=== PATIENT | male | born 1960 | race Hispanic/Latino ===

== ENCOUNTER 2021-03-18 00:07 | Observation (INO) | payer BC ==
[2021-03-18 01:45] LABS: Basophils % (Auto) 0.2 % (0.0-1.8); Hematocrit 49.6 % (35.5-45.6); Hemoglobin 17.4 gm/dl (11.8-15.2); Lymphocytes # (Auto) 2.5 K/mm3 (1.2-5.4); Lymphocytes % (Auto) 22.7 % (13.4-35.0); Mean Corpuscular HGB Conc 35 % (32-34); Mean Corpuscular Volume 99 fl (84-94); Monocytes % (Auto) 8.6 % (0.0-7.3); Platelet Count 304 K/mm3 (140-440); Red Blood Count 5.02 M/mm3 (3.65-5.03); Red Cell Distribution Width 12.8 % (13.2-15.2)
[2021-03-18 02:11] LABS: Alanine Aminotransferase 8 units/L (7-56); Albumin 4.8 g/dL (3.9-5); BUN/Creatinine Ratio 25; Blood Urea Nitrogen 20 mg/dL (9-20); Calcium 10.1 mg/dL (8.4-10.2); Hemolysis Index 17
--- NOTE | 2021-03-18 02:38 | XRay Report ---
ABDOMEN 2 VIEW(S) INDICATION / CLINICAL INFORMATION: Nausea, Vomiting and Diarrhea. COMPARISON: None available. FINDINGS: TUBES / LINES: None. BOWEL GAS PATTERN: Abnormal dilated air-filled small bowel mid upper abdomen. There is air distally i n the colon. FREE AIR / EXTRALUMINAL GAS: None seen. ADDITIONAL FINDINGS: No significant additional findings. IMPRESSION: 1. Abnormal appearance of the small bowel in the upper mid abdomen concerning for at least partial ob struction or focal ileus. Recommend follow-up CT with IV contrast for further evaluation. Signer Name: Daryl Hamlin MD Signed: 03/18/2021 2:34 AM Workstation Name: [id number]
[2021-03-18] MEDS ORDERED: SODIUM CHLORIDE 0.9% 1000 ML 1,000 ML IV ONE (03:57)
--- NOTE | 2021-03-18 04:04 | Emergency Department Report ---
ED Abdominal Pain HPI - General Chief Complaint: Nausea/Vomiting/Diarrhea Stated Complaint: FEVER/EMESIS/DIARRHEA PUI?: No Time Seen by Provider: 03/18/21 03:55 Source: patient Mode of arrival: Ambulatory Limitations: No Limitations - History of Present Illness Initial Comments: Patient is a 61-year-old male that presents emergency room with complaints of abdominal pain, nausea, vomiting, diarrhea. Patient states that his symptoms started 4 days ago. Patient states his symptoms are worsening. Patient states he is feeling weak. Patient denies chest pain. Patient denies shortness of breath. Patient states he feels feverish. Patient complains of chills. Patient states that his abdominal pain is periumbilical. Patient states he has had a 10. Patient is a stabbing pain. Patient dates he has history of diverticulitis. Patient states his pain is better with rest and worse with movement and vomiting. Patient states he has held anything down for 4 days. Patient denies blood in his stool. Patient denies blood in his vomitus. Patient denies recent travel. Patient denies recent international travel. Patient denies exposure to the novel coronavirus. Patient denies sick contacts. Patient denies cough. Patient denies coming in contact with anybody with symptoms of the novel coronavirus. MD Complaint: abdominal pain -: Sudden Location: periumbilical Radiation: none Migration to: no migration Severity: severe Severity scale (0 -10): 10 Quality: stabbing Consistency: constant Improves With: rest Worsens With: eating, vomiting, movement Associated Symptoms: nausea, vomiting, diarrhea, fever, chills. denies: dysuria, hematemesis, hematochezia, melena, hematuria, anorexia, syncope - Related Data Allergies Allergy/AdvReac Type Severity Reaction Status Date / Time No Known Allergies Allergy Unverified 03/18/21 00:58 ED Review of Systems ROS: Stated complaint: FEVER/EMESIS/DIARRHEA Other details as noted in HPI Constitutional: malaise, weakness. denies: chills, fever Eyes: denies: eye pain, eye discharge, vision change ENT: denies: ear pain, throat pain Respiratory: denies: cough, shortness of breath, wheezing Cardiovascular: denies: chest pain, palpitations Endocrine: no symptoms reported Gastrointestinal: as per HPI, abdominal pain, nausea, vomiting, diarrhea Genitourinary: denies: urgency, dysuria Musculoskeletal: denies: back pain, joint swelling, arthralgia Skin: denies: rash, lesions Neurological: denies: headache, paresthesias Psychiatric: denies: anxiety, depression Hematological/Lymphatic: denies: easy bleeding, easy bruising ED Past Medical Hx - Past Medical History Previous Medical History?: Yes Additional medical history: Chronic Back Pain. Opioid Addiction - Surgical History Past Surgical History?: No - Family History Family history: no significant - Social History Smoking Status: Current Every Day Smoker Substance Use Type: None ED Physical Exam - General Limitations: No Limitations General appearance: alert, in no apparent distress - Head Head exam: Present: atraumatic, normocephalic - Eye Eye exam: Present: normal appearance - ENT ENT exam: Present: mucous membranes dry - Neck Neck exam: Present: normal inspection - Respiratory Respiratory exam: Present: normal lung sounds bilaterally. Absent: respiratory distress - Cardiovascular Cardiovascular Exam: Present: regular rate, normal rhythm. Absent: systolic murmur, diastolic murmur, rubs, gallop - GI/Abdominal GI/Abdominal exam: Present: soft, tenderness, normal bowel sounds - Rectal Rectal exam: Present: deferred - Extremities Exam Extremities exam: Present: normal inspection - Back Exam Back exam: Present: normal inspection - Neurological Exam Neurological exam: Present: alert, oriented X3 - Psychiatric Psychiatric exam: Present: normal affect, normal mood - Skin Skin exam: Present: warm, dry, intact, normal color. Absent: rash ED Course Vital Signs 03/18/21 03/18/21 03/18/21 00:29 04:03 04:09 Temperature 98.2 F Pulse Rate 93 H 79 Respiratory 18 14 18 Rate Blood Pressure 118/84 O2 Sat by Pulse 98 98 Oximetry 03/18/21 03/18/21 03/18/21 04:15 04:31 04:45 Temperature Pulse Rate 73 74 Respiratory 10 L 16 18 Rate Blood Pressure 148/82 150/89 148/78 O2 Sat by Pulse 98 100 99 Oximetry 03/18/21 03/18/21 05:09 05:15 Temperature Pulse Rate 77 79 Respiratory 17 12 Rate Blood Pressure O2 Sat by Pulse 88 100 Oximetry - Reevaluation(s) Reevaluation #1: I discussed all results with patient. I discussed plan of care with patient. Patient agrees with plan of care and admission. Patient to be admitted to the hospitalist service. 03/18/21 06:10 - Consultations Consultation #1: Hospitalist consulted for admission. Hospitalist to admit patient. 03/18/21 06:10 ED Medical Decision Making - Lab Data Result diagrams: 03/18/21 01:30 03/18/21 01:30 - Radiology Data Radiology results: report reviewed, image reviewed CT ABDOMEN AND PELVIS WITH CONTRAST HISTORY: Periumbilical abd pain with N/V/D x 4 days. S.B.O. seen on X-ray. COMPARISON: None. TECHNIQUE: CT images of the abdomen and pelvis were obtained following administration of intravenous contrast. All CT scans at this location are performed using CT dose reduction for ALARA by means of automated exposure control. CONTRAST: 100 ml of intravenous contrast administered. FINDINGS: Lungs/bones: Severe emphysema with otherwise clear lung bases. Mild degenerative changes in the spine and pelvis with nothing acute. Abdomen/pelvis: There is diffuse small bowel mucosal enhancement and fluid- filled appearance with a few mildly prominent loops in the right mid abdomen likely accounting for the x-ray findings. No transition point identified. The liver, gallbladder, spleen, pancreas, adrenals, and kidneys appear unremarkable. The urinary bladder and prostate are unremarkable with no pelvic free fluid. There is mild colonic diverticulosis with no acute inflammatory change. The appendix is normal. IMPRESSION: 1. Diffuse small bowel findings most likely represent moderate enteritis. No obstruction identified. ABDOMEN 2 VIEW(S) INDICATION / CLINICAL INFORMATION: Nausea, Vomiting and Diarrhea. COMPARISON: None available. FINDINGS: TUBES / LINES: None. BOWEL GAS PATTERN: Abnormal dilated air-filled small bowel mid upper abdomen. There is air distally in the colon. FREE AIR / EXTRALUMINAL GAS: None seen. ADDITIONAL FINDINGS: No significant additional findings. IMPRESSION: 1. Abnormal appearance of the small bowel in the upper mid abdomen concerning for at least partial obstruction or focal ileus. Recommend follow-up CT with IV contrast for further evaluation. - Medical Decision Making Patient is a 61-year-old male who presents emergency room with complaints of nausea, vomiting, diarrhea, abdominal pain. Patient also complains of weakness. Patient's nausea vomiting is intractable. Patient weakness made it difficult to walk. Patient also complained of lightheadedness. Patient had labs done which were consistent with dehydration and hemoconcentration. Patient found to have an elevated WBC. Patient had a flat plate abdominal series and it showed possible SBO. Suggest to have a CT scan of the abdomen. CT scan of the abdomen with IV contrast shows enteritis. Patient denies is intractable. Patient's pain is difficult to control. Patient given 2 mg of Dilaudid and still complained of pain. Patient admitted to the hospital for further evaluation treatment intractable nausea and vomiting and intractable abdominal pain. Pat ient given Zosyn for broad-spectrum antibiotics for the enteritis and intra- abdominal infection. Patient also given fluids in the ER. \ Critical care time documented due to the multiple reassessments, prolonged time at the bedside, interpretation of diagnostics and labs. - Differential Diagnosis sbo, gastroenteritis, enteritis, intractable n/v, weakness, abd pain Critical Care Time: Yes Critical care time in (mins) excluding proc time.: 35 Critical care attestation.: If time is entered above; I have spent that time in minutes in the direct care of this critically ill patient, excluding procedure time. Critical Care Time: 35 minutes ED Disposition Clinical Impression: Gastroenteritis Nausea & vomiting Qualifiers: Vomiting type: unspecified Vomiting Intractability: intractable Qualified Code(s): R11.2 - Nausea with vomiting, unspecified Abdominal pain Qualifiers: Abdominal location: periumbilical Qualified Code(s): R10.33 - Periumbilical pain Diarrhea Qualifiers: Diarrhea type: unspecified type Qualified Code(s): R19.7 - Diarrhea, unspecified Disposition: 09 OP ADMIT IP TO THIS HOSP Is pt being admited?: Yes Does the pt Need Aspirin: No Condition: Critical Time of Disposition: 06:09
[2021-03-18] MEDS ORDERED: HYDROmorphone 2 MG/1 ML INJ IV ONE (05:17)
[2021-03-18] MEDS ORDERED: ONDANSETRON 4 MG/2 ML INJ IV ONE (05:17)
--- NOTE | 2021-03-18 05:51 | Cat Scan Report ---
CT ABDOMEN AND PELVIS WITH CONTRAST HISTORY: Periumbilical abd pain with N/V/D x 4 days. S.B.O. seen on X-ray. COMPARISON: None. TECHNIQUE: CT images of the abdomen and pelvis were obtained following administration of intravenous contrast. All CT scans at this location are performed using CT dose reduction for ALARA by means of automated exposure control. CONTRAST: 100 ml of intravenous contrast administered. FINDINGS: Lungs/bones: Severe emphysema with otherwise clear lung bases. Mild degenerative changes in the spin e and pelvis with nothing acute. Abdomen/pelvis: There is diffuse small bowel mucosal enhancement and fluid-filled appearance with a few mildly prominent loops in the right mid abdomen likely accounting for the x-ray findings. No moe sition point identified. The liver, gallbladder, spleen, pancreas, adrenals, and kidneys appear unremarkable. The urinary bladder and prostate are unremarkable with no pelvic free fluid. There is mild colonic di verticulosis with no acute inflammatory change. The appendix is normal. IMPRESSION: 1. Diffuse small bowel findings most likely represent moderate enteritis. No obstruction identified. Signer Name: Daryl Hamlin MD Signed: 03/18/2021 5:46 AM Workstation Name: [id number]
[2021-03-18] MEDS ORDERED: PIPERACILLIN/TAZOBACTAM 3.375 3.375 GM/50 ML BAG IV ONE (06:04)
[2021-03-18] MEDS ORDERED: ALBUTEROL 2.5 MG/3 ML NEBU IH PRN (06:15)
[2021-03-18] MEDS ORDERED: ACETAMINOPHEN 325 MG TAB PO PRN (06:15)
[2021-03-18] MEDS ORDERED: MORPHINE 2 MG/1 ML INJ IV PRN (06:16)
[2021-03-18] MEDS ORDERED: hydrALAZINE 20 MG/1 ML INJ IV PRN (06:16)
--- NOTE | 2021-03-18 06:22 | History and Physical Report ---
History of Present Illness Date of examination: 03/18/21 Date of admission: 03/18/2021 Chief complaint: Nausea vomiting diarrhea History of present illness: 61-year-old male with past medical history of diverticulitis was brought to the emergency room because of abdominal pain, nausea, vomiting, diarrhea for the last 4 days. Abdominal pain is stabbing in nature periumbilical 10/10. Patient states his symptoms are worsening. Patient states he is feeling weak. Patient denies chest pain and shortness of breath. Patient states he feels feverish. Patient complains of chills. Patient states his pain is better with rest and worse with movement and vomiting. Patient states he has held anything down for 4 days. Patient denies blood in his stool. Patient denies blood in his vomitus. In the emergency room CT scan of the abdomen pelvis shows diffuse small bowel finding most likely represent moderate enteritis no obstruction identified Past History Past Medical History: other (Diverticulitis) Medications and Allergies Allergies Allergy/AdvReac Type Severity Reaction Status Date / Time No Known Allergies Allergy Unverified 03/18/21 00:58 Active Meds: Active Medications Piperacillin Sod/Tazobactam Sod (Zosyn/Ns 3.375gm/50ml) 3.375 gm in 50 mls @ 100 mls/hr IV ONCE ONE; Protocol Stop: 03/18/21 06:33 Review of Systems Gastrointestinal: nausea, vomiting, diarrhea Exam - Constitutional Vitals: Temp Pulse Resp BP Pulse Ox 98.2 F 79 12 148/78 100 03/18/21 00:29 03/18/21 05:15 03/18/21 05:15 03/18/21 04:45 03/18/21 05:15 General appearance: Present: no acute distress, well-nourished - EENT Eyes: Present: PERRL ENT: hearing intact, clear oral mucosa - Neck Neck: Present: supple, normal ROM - Respiratory Respiratory effort: normal Respiratory: bilateral: CTA - Cardiovascular Heart Sounds: Present: S1 & S2. Absent: rub, click - Extremities Extremities: pulses symmetrical, No edema Peripheral Pulses: within normal limits - Abdominal General gastrointestinal: Present: soft, non-tender, non-distended, normal bowel sounds Male genitourinary: Present: normal - Integumentary Integumentary: Present: clear, warm, dry - Musculoskeletal Musculoskeletal: gait normal, strength equal bilaterally - Psychiatric Psychiatric: appropriate mood/affect, intact judgment & insight - Neurologic Neurologic: CNII-XII intact, moves all extremities Results - Labs CBC & Chem 7: 03/18/21 01:30 03/18/21 01:30 Labs: Laboratory Last Values WBC 11.1 K/mm3 (4.5-11.0) H 03/18/21 01:30 RBC 5.02 M/mm3 (3.65-5.03) 03/18/21 01:30 Hgb 17.4 gm/dl (11.8-15.2) H 03/18/21 01:30 Hct 49.6 % (35.5-45.6) H 03/18/21 01:30 MCV 99 fl (84-94) H 03/18/21 01:30 MCH 35 pg (28-32) H 03/18/21 01:30 MCHC 35 % (32-34) H 03/18/21 01:30 RDW 12.8 % (13.2-15.2) L 03/18/21 01:30 Plt Count 304 K/mm3 (140-440) 03/18/21 01:30 Lymph % (Auto) 22.7 % (13.4-35.0) 03/18/21 01:30 [place] % (Auto) 8.6 % (0.0-7.3) H 03/18/21 01:30 Eos % (Auto) 0.0 % (0.0-4.3) 03/18/21 01:30 Baso % (Auto) 0.2 % (0.0-1.8) 03/18/21 01:30 Lymph # (Auto) 2.5 K/mm3 (1.2-5.4) 03/18/21 01:30 [place] # (Auto) 1.0 K/mm3 (0.0-0.8) H 03/18/21 01:30 Eos # (Auto) 0.0 K/mm3 (0.0-0.4) 03/18/21 01:30 Baso # (Auto) 0.0 K/mm3 (0.0-0.1) 03/18/21 01:30 Seg Neutrophils % 68.5 % (40.0-70.0) 03/18/21 01:30 Seg Neutrophils # 7.6 K/mm3 (1.8-7.7) 03/18/21 01:30 Sodium 141 mmol/L (137-145) 03/18/21 01:30 Potassium 3.5 mmol/L (3.6-5.0) L 03/18/21 01:30 Chloride 98.8 mmol/L (98-107) 03/18/21 01:30 Carbon Dioxide 29 mmol/L (22-30) 03/18/21 01:30 Anion Gap 17 mmol/L 03/18/21 01:30 BUN 20 mg/dL (9-20) 03/18/21 01:30 Creatinine 0.8 mg/dL (0.8-1.3) 03/18/21 01:30 Estimated GFR > 60 ml/min 03/18/21 01:30 BUN/Creatinine Ratio 25 % 03/18/21 01:30 Glucose 127 mg/dL (75-100) H 03/18/21 01:30 Calcium 10.1 mg/dL (8.4-10.2) 03/18/21 01:30 Total Bilirubin 0.70 mg/dL (0.1-1.2) 03/18/21 01:30 AST 15 units/L (5-40) 03/18/21 01:30 ALT 8 units/L (7-56) 03/18/21 01:30 Alkaline Phosphatase 109 units/L (35-129) 03/18/21 01:30 Total Protein 7.7 g/dL (6.3-8.2) 03/18/21 01:30 Albumin 4.8 g/dL (3.9-5) 03/18/21 01:30 Albumin/Globulin Ratio 1.7 % 03/18/21 01:30 Lipase 38 units/L (13-60) 03/18/21 01:30 - Imaging and Cardiology CT scan - abdomen: image reviewed Assessment and Plan VTE prophylaxis?: Chemical Plan of care discussed with patient/family: Yes - Patient Problems (1) Gastroenteritis Current Visit: Yes Status: Acute Plan to address problem: Admit the patient to the medical telemetry. N.p.o. IV fluid D5 half-normal saline at the rate of 125 cc/h. Zosyn 4.5 g IV every 8 hours. We sent the stool for culture. Recheck CBC BMP in the morning (2) Diarrhea Current Visit: Yes Status: Acute Qualifiers: Diarrhea type: unspecified type Qualified Code(s): R19.7 - Diarrhea, unspecified Plan to address problem: N.p.o. IV fluid D5 half-normal saline at the rate of 125 cc/h. Zosyn 4.5 g IV every 8 hours. We sent the stool for culture. Recheck CBC BMP in the morning (3) Abdominal pain Current Visit: Yes Status: Acute Qualifiers: Abdominal location: periumbilical Qualified Code(s): R10.33 - Periumbilical pain Plan to address problem: Pepcid 20 mg IV twice daily. Tylenol 650 mg p.o. every 6 hours as needed. Morphine 2 mg IV every 4 hours as needed (4) Nausea & vomiting Current Visit: Yes Status: Acute Qualifiers: Vomiting type: unspecified Vomiting Intractability: intractable Qualified Code(s): R11.2 - Nausea with vomiting, unspecified Plan to address problem: Zofran 4 mg IV every 6 hours as needed. Pepcid 20 mg IV every 12 hours (5) DVT prophylaxis Current Visit: Yes Status: Acute Plan to address problem: Heparin 5000 units subcu every 8 hours for DVT prophylaxis and Pepcid 20 mg IV every 12 hours for GI prophylaxis. Patient is a full code
[2021-03-18] MEDS: IPRATROPIUM/ALBUTEROL SULFATE 3 ML AMPUL.NEB IH SCH ×3 (09:29→21:33)
[2021-03-18] MEDS: MORPHINE 2 MG/1 ML INJ IV PRN ×4 (09:49→22:40)
[2021-03-18] MEDS: PIPERACIL/TAZOBACTA 4.5/NS 100 4.5 GM/100 ML VIAL IV SCH ×2 (13:51→22:18)
[2021-03-18] MEDS: D5W/0.45% NACL 1,000 ML IV SCH (13:52)
[2021-03-18] MEDS: ONDANSETRON 4 MG/2 ML INJ IV PRN ×2 (13:53→22:39)
[2021-03-18] MEDS: HEPARIN 5,000 UNIT/1 ML VIAL SUB-Q SCH ×2 (13:54→22:24)
[2021-03-18] MEDS: FAMOTIDINE 20 MG/2 ML INJ IV SCH ×2 (13:55→22:19)
[2021-03-18] MEDS ORDERED: FLU VACC QUAD 2020-2021 (6 months +)/PF 60 0.5 ML SYRINGE IM ONE (21:00)
[2021-03-18 22:48] LABS: Bilirubin,Urine NEG (Negative); Blood,Urine SM (Negative); Color,Urine Yellow (Yellow); Mucus,Urine 3+ /HPF; Urobilinogen,Urine < 2.0 mg/dL (<2.0)
[2021-03-19] MEDS ORDERED: ZOLPIDEM 5 MG TAB PO ONE (01:55)
[2021-03-19] MEDS: MORPHINE 2 MG/1 ML INJ IV PRN ×4 (05:04→22:24)
[2021-03-19] MEDS: HEPARIN 5,000 UNIT/1 ML VIAL SUB-Q SCH ×4 (05:05→22:25)
[2021-03-19] MEDS: D5W/0.45% NACL 1,000 ML IV SCH (05:05)
[2021-03-19] MEDS: PIPERACIL/TAZOBACTA 4.5/NS 100 4.5 GM/100 ML VIAL IV SCH (05:07)
[2021-03-19] MEDS: IPRATROPIUM/ALBUTEROL SULFATE 3 ML AMPUL.NEB IH SCH ×3 (08:21→22:55)
--- NOTE | 2021-03-19 08:38 | Progress Note ---
Assessment and Plan Assessment and plan: (1) Gastroenteritis Current Visit: Yes Status: Acute Plan to address problem: Admit the patient to the medical telemetry. N.p.o. IV fluid D5 half-normal saline at the rate of 125 cc/h. Zosyn 4.5 g IV every 8 hours. We sent the stool for culture. Recheck CBC BMP in the morning (2) Diarrhea Current Visit: Yes Status: Acute Qualifiers: Diarrhea type: unspecified type Qualified Code(s): R19.7 - Diarrhea, unspecified Plan to address problem: N.p.o. IV fluid D5 half-normal saline at the rate of 125 cc/h. Zosyn 4.5 g IV every 8 hours. We sent the stool for culture. Recheck CBC BMP in the morning (3) Abdominal pain Current Visit: Yes Status: Acute Qualifiers: Abdominal location: periumbilical Qualified Code(s): R10.33 - Periumbilical pain Plan to address problem: Pepcid 20 mg IV twice daily. Tylenol 650 mg p.o. every 6 hours as needed. Morphine 2 mg IV every 4 hours as needed (4) Nausea & vomiting Current Visit: Yes Status: Acute Qualifiers: Vomiting type: unspecified Vomiting Intractability: intractable Qualified Code(s): R11.2 - Nausea with vomiting, unspecified Plan to address problem: Zofran 4 mg IV every 6 hours as needed. Pepcid 20 mg IV every 12 hours (5) DVT prophylaxis Current Visit: Yes Status: Acute Plan to address problem: Heparin 5000 units subcu every 8 hours for DVT prophylaxis and Pepcid 20 mg IV every 12 hours for GI prophylaxis. Patient is a full code 03/19/2021 -Patient's abdominal pain is getting better, continue with antibiotic. Continue pain control. -Patient tolerated clear liquid diet and will advance to full liquid diet for lunch and advance to soft diet for dinner -If patient continuing to improve possible discharge tomorrow. -WBC count is normal today. History Interval history: Patient was seen and evaluated this morning Patient's abdominal pain was 6 out of 10, better than yesterday Patient is on clear liquid diet; will advance as tolerated Hospitalist Physical - Physical exam Narrative exam: Not in cardiopulmonary distress. The patient appeared well nourished and normally developed. Vital signs as documented. Head exam is unremarkable. No scleral icterus . Neck is without jugular venous distension, thyromegaly, or carotid bruits. Lungs are clear to auscultation. Cardiac exam reveals regular rate and Rhythm. Abdominal exam reveals tenderness. Extremities are nonedematous and both femoral and pedal pulses are normal. [employer]: Alert and oriented 3. No focal weakness. - Constitutional Vitals: Temp Pulse Resp BP Pulse Ox 98.9 F 66 18 151/80 97 03/19/21 06:17 03/19/21 06:17 03/19/21 06:17 03/19/21 06:17 03/19/21 06:17 General appearance: Present: no acute distress, well-nourished Results - Labs CBC & Chem 7: 03/19/21 09:00 03/19/21 09:00 Labs: Laboratory Last Values WBC 11.1 K/mm3 (4.5-11.0) H 03/18/21 01:30 RBC 5.02 M/mm3 (3.65-5.03) 03/18/21 01:30 Hgb 17.4 gm/dl (11.8-15.2) H 03/18/21 01:30 Hct 49.6 % (35.5-45.6) H 03/18/21 01:30 MCV 99 fl (84-94) H 03/18/21 01:30 MCH 35 pg (28-32) H 03/18/21 01:30 MCHC 35 % (32-34) H 03/18/21 01:30 RDW 12.8 % (13.2-15.2) L 03/18/21 01:30 Plt Count 304 K/mm3 (140-440) 03/18/21 01:30 Lymph % (Auto) 22.7 % (13.4-35.0) 03/18/21 01:30 [place] % (Auto) 8.6 % (0.0-7.3) H 03/18/21 01:30 Eos % (Auto) 0.0 % (0.0-4.3) 03/18/21 01:30 Baso % (Auto) 0.2 % (0.0-1.8) 03/18/21 01:30 Lymph # (Auto) 2.5 K/mm3 (1.2-5.4) 03/18/21 01:30 [place] # (Auto) 1.0 K/mm3 (0.0-0.8) H 03/18/21 01:30 Eos # (Auto) 0.0 K/mm3 (0.0-0.4) 03/18/21 01:30 Baso # (Auto) 0.0 K/mm3 (0.0-0.1) 03/18/21 01:30 Seg Neutrophils % 68.5 % (40.0-70.0) 03/18/21 01:30 Seg Neutrophils # 7.6 K/mm3 (1.8-7.7) 03/18/21 01:30 Sodium 141 mmol/L (137-145) 03/18/21 01:30 Potassium 3.5 mmol/L (3.6-5.0) L 03/18/21 01:30 Chloride 98.8 mmol/L (98-107) 03/18/21 01:30 Carbon Dioxide 29 mmol/L (22-30) 03/18/21 01:30 Anion Gap 17 mmol/L 03/18/21 01:30 BUN 20 mg/dL (9-20) 03/18/21 01:30 Creatinine 0.8 mg/dL (0.8-1.3) 03/18/21 01:30 Estimated GFR > 60 ml/min 03/18/21 01:30 BUN/Creatinine Ratio 25 % 03/18/21 01:30 Glucose 127 mg/dL (75-100) H 03/18/21 01:30 Calcium 10.1 mg/dL (8.4-10.2) 03/18/21 01:30 Total Bilirubin 0.70 mg/dL (0.1-1.2) 03/18/21 01:30 AST 15 units/L (5-40) 03/18/21 01:30 ALT 8 units/L (7-56) 03/18/21 01:30 Alkaline Phosphatase 109 units/L (35-129) 03/18/21 01:30 Total Protein 7.7 g/dL (6.3-8.2) 03/18/21 01:30 Albumin 4.8 g/dL (3.9-5) 03/18/21 01:30 Albumin/Globulin Ratio 1.7 % 03/18/21 01:30 Lipase 38 units/L (13-60) 03/18/21 01:30 Urine Color Yellow (Yellow) 03/18/21 22:31 Urine Turbidity Clear (Clear) 03/18/21 22:31 Urine pH 5.0 (5.0-7.0) 03/18/21 22:31 Ur Specific [place] 1.041 (1.003-1.030) H 03/18/21 22:31 Urine Protein 30 mg/dl mg/dL (Negative) 03/18/21 22:31 Urine Glucose (UA) 50 mg/dL (Negative) 03/18/21 22:31 Urine Ketones 20 mg/dL (Negative) 03/18/21 22:31 Urine Blood Sm (Negative) 03/18/21 22:31 Urine Nitrite Neg (Negative) 03/18/21 22: Urine Bilirubin Neg (Negative) 03/18/21 22: Urine Urobilinogen < 2.0 mg/dL (<2.0) 03/18/21 22:31 Ur Leukocyte Esterase Neg (Negative) 03/18/21 22:31 Urine WBC (Auto) 2.0 /HPF (0.0-6.0) 03/18/21 22:31 Urine RBC (Auto) 3.0 /HPF (0.0-6.0) 03/18/21 22:31 Urine Mucus 3+ /HPF 03/18/21 22:31 Tian/IV: Voiding Method Toilet Active Medications - Current Medications Current Medications: Generic Name Dose Route Start Last Admin Trade Name Freq PRN Reason Stop Dose Admin Acetaminophen 650 mg 03/18/21 06:15 Acetaminophen 325 Mg Tab PO Q4H PRN Pain MILD(1-3)/Fever >100.5/PRO Albuterol 2.5 mg 03/18/21 06:15 Albuterol 2.5 Mg/3 Ml Nebu IH Q3HRT PRN Shortness Of Breath Albuterol/Ipratropium 1 ampul 03/19/21 08:00 03/19/21 08:21 Ipratropium/Albuterol Sulfate 3 Ml Ampul.Neb IH 1 ampul TIDRT ANN Administration Famotidine 20 mg 03/18/21 10:00 03/18/21 22:19 Famotidine 20 Mg/2 Ml Inj IV 20 mg BID ANN Administration Heparin Sodium (Porcine) 5,000 unit 03/18/21 14:00 03/19/21 05:11 Heparin 5,000 Unit/1 Ml Vial SUB-Q Not Given Q8HR ANN Hydralazine HCl 10 mg 03/18/21 06:16 Hydralazine 20 Mg/1 Ml Inj IV Q6H PRN htn Dextrose/Sodium Chloride 1,000 mls @ 125 mls/hr 03/18/21 07:00 03/19/21 05:05 D5/0.45ns IV 125 mls/hr DIRECT ANN Administration Piperacillin Sod/Tazobactam Sod 4.5 gm in 100 mls @ 200 mls/hr 03/18/21 14:00 03/19/21 05:07 Zosyn/Ns 4.5gm/100ml IV 200 mls/hr Q8HR ANN Administration Protocol Morphine Sulfate 2 mg 03/18/21 10:00 03/19/21 05:04 Morphine 2 Mg/1 Ml Inj IV 2 mg Q3H PRN Administration Pain , Severe (7-10) Ondansetron HCl 4 mg 03/18/21 06:15 03/18/21 22:39 Ondansetron 4 Mg/2 Ml Inj IV 4 mg Q8H PRN Administration Nausea And Vomiting Oxycodone/Acetaminophen 1 tab 03/18/21 10:00 Oxycodone /Acetaminophen 5-325mg Tab PO Q6H PRN Pain, Moderate (4-6) Sodium Chloride 10 ml 03/18/21 10:00 03/18/21 22:19 Sodium Chloride 0.9% 10 Ml Flush Syringe IV 10 ml BID ANN Administration Sodium Chloride 10 ml 03/18/21 06:15 Sodium Chloride 0.9% 10 Ml Flush Syringe IV PRN PRN LINE FLUSH
[2021-03-19 09:16] LABS: Basophils # (Auto) 0.1 K/mm3 (0.0-0.1); Eosinophils % (Auto) 0.1 % (0.0-4.3); Hematocrit 39.4 % (35.5-45.6); Hemoglobin 13.7 gm/dl (11.8-15.2); Lymphocytes # (Auto) 2.1 K/mm3 (1.2-5.4); Lymphocytes % (Auto) 37.8 % (13.4-35.0); Mean Corpuscular HGB Conc 35 % (32-34); Mean Corpuscular Volume 100 fl (84-94); Monocytes # (Auto) 0.5 K/mm3 (0.0-0.8); Monocytes % (Auto) 8.5 % (0.0-7.3); Platelet Count 179 K/mm3 (140-440); Red Blood Count 3.94 M/mm3 (3.65-5.03); Red Cell Distribution Width 12.6 % (13.2-15.2)
[2021-03-19] MEDS: ONDANSETRON 4 MG/2 ML INJ IV PRN (09:18)
[2021-03-19] MEDS: oxyCODONE /ACETAMINOPHEN 5-325MG TAB PO PRN (09:18)
[2021-03-19] MEDS: FAMOTIDINE 20 MG/2 ML INJ IV SCH ×2 (09:18→22:24)
[2021-03-19 09:35] LABS: BUN/Creatinine Ratio 19; Blood Urea Nitrogen 17 mg/dL (9-20); Calcium 8.3 mg/dL (8.4-10.2); Hemolysis Index 8
[2021-03-19] MEDS ORDERED: POTASSIUM CHLORIDE ER 20 MEQ TAB PO NR (10:43)
[2021-03-19] MEDS: levETIRAcetam 500 MG TAB PO SCH ×2 (11:24→22:24)
[2021-03-19] MEDS ORDERED: FLU VACC QUAD 2020-2021 (6 months +)/PF 60 0.5 ML SYRINGE IM ONE (12:00)
[2021-03-19] MEDS ORDERED: PIPERACILLIN/TAZOBACTAM 3.375 3.375 GM/50 ML BAG IV SCH (14:00)
[2021-03-19] MEDS: PIPERACILLIN/TAZOBACTAM 3.375 3.375 GM/50 ML BAG IV SCH (22:24)
[2021-03-20] MEDS: MORPHINE 2 MG/1 ML INJ IV PRN ×2 (01:44→05:26)
[2021-03-20] MEDS: PIPERACILLIN/TAZOBACTAM 3.375 3.375 GM/50 ML BAG IV SCH ×2 (05:26→14:46)
[2021-03-20] MEDS: HEPARIN 5,000 UNIT/1 ML VIAL SUB-Q SCH ×2 (05:26→14:46)
[2021-03-20 06:28] LABS: Blood Urea Nitrogen 7 mg/dL (9-20); Calcium 8.5 mg/dL (8.4-10.2); Hemolysis Index 2
[2021-03-20 06:29] LABS: BUN/Creatinine Ratio 12
[2021-03-20 07:08] VITALS: BP 165/84
[2021-03-20] MEDS ORDERED: POTASSIUM CHLORIDE ER 20 MEQ TAB PO ONE (09:00)
[2021-03-20] MEDS: FAMOTIDINE 20 MG/2 ML INJ IV SCH (09:49)
[2021-03-20] MEDS: levETIRAcetam 500 MG TAB PO SCH (09:49)
[2021-03-20] MEDS: oxyCODONE /ACETAMINOPHEN 5-325MG TAB PO PRN (09:49)
--- NOTE | 2021-03-20 10:54 | Discharge Summary ---
Providers - Providers Date of Admission: 03/18/21 06:10 Date of discharge: 03/20/21 Attending physician: CHANG DO MD Primary care physician: PRINTING SERVICES COORDINATOR Hospitalization Reason for admission: Enteritis, abdominal pain Condition: Stable Pertinent studies: CT abdomen and pelvis Hospital course: History of present illness: 61-year-old male with past medical history of diverticulitis was brought to the emergency room because of abdominal pain, nausea, vomiting, diarrhea for the last 4 days. Abdominal pain is stabbing in nature periumbilical 09/05. Patient states his symptoms are worsening. Patient states he is feeling weak. Patient denies chest pain and shortness of breath. Patient states he feels feverish. Patient complains of chills. Patient states his pain is better with rest and worse with movement and vomiting. Patient states he has held anything down for 4 days. Patient denies blood in his stool. Patient denies blood in his vomitus. In the emergency room CT scan of the abdomen pelvis shows diffuse small bowel finding most likely represent moderate enteritis no obstruction identified. Hospital course (1) Gastroenteritis Current Visit: Yes Status: Acute Plan to address problem: Admit the patient to the medical telemetry. N.p.o. IV fluid D5 half-normal saline at the rate of 125 cc/h. Zosyn 4.5 g IV every 8 hours. We sent the stool for culture. Recheck CBC BMP in the morning (2) Diarrhea Current Visit: Yes Status: Acute Qualifiers: Diarrhea type: unspecified type Qualified Code(s): R19.7 - Diarrhea, unspecified Plan to address problem: N.p.o. IV fluid D5 half-normal saline at the rate of 125 cc/h. Zosyn 4.5 g IV every 8 hours. We sent the stool for culture. Recheck CBC BMP in the morning (3) Abdominal pain Current Visit: Yes Status: Acute Qualifiers: Abdominal location: periumbilical Qualified Code(s): R10.33 - Periumbilical pain Plan to address problem: Pepcid 20 mg IV twice daily. Tylenol 650 mg p.o. every 6 hours as needed. Morphine 2 mg IV every 4 hours as needed (4) Nausea & vomiting Current Visit: Yes Status: Acute Qualifiers: Vomiting type: unspecified Vomiting Intractability: intractable Qualified Code(s): R11.2 - Nausea with vomiting, unspecified Plan to address problem: Zofran 4 mg IV every 6 hours as needed. Pepcid 20 mg IV every 12 hours (5) DVT prophylaxis Current Visit: Yes Status: Acute Plan to address problem: Heparin 5000 units subcu every 8 hours for DVT prophylaxis and Pepcid 20 mg IV every 12 hours for GI prophylaxis. Patient is a full code 03/19/2021 -Patient's abdominal pain is getting better, continue with antibiotic. Continue pain control. -Patient tolerated clear liquid diet and will advance to full liquid diet for lunch and advance to soft diet for dinner -If patient continuing to improve possible discharge tomorrow. -WBC count is normal today. Patient was seen and evaluated this morning, patient's abdominal pain is better controlled. Patient tolerated soft diet. Patient discharged with pain medications and Augmentin. Patient advised to have follow-up with his primary care physician. Patient said he has seizure and refill for Keppra was given to the patient. Disposition: DC-01 TO HOME OR SELFCARE Final Discharge Diagnosis (Prints w/discharge instructions): Enteritis. Abdominal pain Time spent for discharge: 25 minutes - Discharge Diagnoses (1) Abdominal pain Status: Acute Qualifiers: Abdominal location: periumbilical Qualified Code(s): R10.33 - Periumbilical pain (2) Diarrhea Status: Acute Qualifiers: Diarrhea type: unspecified type Qualified Code(s): R19.7 - Diarrhea, unspecified (3) Gastroenteritis Status: Acute (4) Nausea & vomiting Status: Acute Qualifiers: Vomiting type: unspecified Vomiting Intractability: intractable Qualified Code(s): R11.2 - Nausea with vomiting, unspecified Core Measure Documentation - Palliative Care Palliative Care/ Comfort Measures: Not Applicable - Core Measures Any of the following diagnoses?: none Exam - Physical Exam Narrative exam: Not in cardiopulmonary distress. The patient appeared well nourished and normally developed. Vital signs as documented. Head exam is unremarkable. No scleral icterus . Neck is without jugular venous distension, thyromegaly, or carotid bruits. Lungs are clear to auscultation. Cardiac exam reveals regular rate and Rhythm. Abdominal exam nontender. Extremities are nonedematous and both femoral and pedal pulses are normal. 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 No focal weakness. - Constitutional Vitals: Temp Pulse Resp BP Pulse Ox 98.2 F 61 20 165/84 99 03/20/21 06:01 03/20/21 06:01 03/20/21 06:01 03/20/21 06:01 03/20/21 06:01 Plan Activity: no restrictions Weight Bearing Status: Full Weight Bearing Diet: advance as tolerated Follow up with: PRIMARY CARE, [Primary Care Provider] - 7 Days Prescriptions: Amoxicillin/K Clav Tab [Augmentin 875 mg] 1 tab PO Q12HR #10 tab levETIRAcetam [Keppra TAB] 500 mg PO BID #60 tablet oxyCODONE /ACETAMINOPHEN [Percocet 5/325 mg] 1 tab PO Q6H PRN #14 tablet PRN Reason: Pain, Moderate (4-6)
[2021-03-20] MEDS: IPRATROPIUM/ALBUTEROL SULFATE 3 ML AMPUL.NEB IH SCH (11:24)
== END 2021-03-20 14:55 | disposition home or self-care (01) ==
LOC: ED 00:07 → 3A 06:10
PROVIDERS: ADMIT Hospitalist; ATTEND Internal Medicine
DX: K52.9 Noninfective gastroenteritis and colitis, unspecified (principal); F17.210 Nicotine dependence, cigarettes, uncomplicated; Z79.899 Other long term (current) drug therapy; Z98.890 Other specified postprocedural states
CPT/HCPCS: 36415; 74019; 74177; 80048; 80053; 81001; 83690; 85025; 94640; 96361; 96365; 96366; 96372; 96375; 96376; 99291; 99406; G0378; J1170; J1644; J2270; J2405; J2543; J7030; Q9967; 90686